=== PATIENT | female | born 1995 | race American Indian/Alaskan Native ===

== ENCOUNTER 2019-11-28 23:27 | Emergency (ER) | payer OTHER ==
[2019-11-29 00:44] VITALS: BP 114/84
--- NOTE | 2019-11-29 01:33 | XRay Report ---
CHEST 1 VIEW INDICATION / CLINICAL INFORMATION: Chest Pain. COMPARISON: None available. FINDINGS: SUPPORT DEVICES: None. HEART / MEDIASTINUM: No significant abnormality. LUNGS / PLEURA: No significant pulmonary or pleural abnormality. No pneumothorax. ADDITIONAL FINDINGS: No significant additional findings. IMPRESSION: No acute pulmonary or pleural abnormality Signer Name: Jeramy Montalvo MD FACR Signed: 11/29/2019 1:29 AM Workstation Name: [id number]
--- NOTE | 2019-11-29 01:56 | Emergency Department Report ---
HPI - General Chief Complaint: Chest Pain Time Seen by Provider: 11/29/19 01:16 - HPI HPI: This is a 24-year-old female here report that she is having right upper chest pain x2 days. She denies any trauma. She said this happened when she tries to take a deep breath. Radiating to right shoulder. Denies any fever chills or cough. Denies any nausea vomiting or diarrhea. Denies any nasal congestion or runny nose. No exposure to individuals with similar symptoms or individuals with coronavirus. Her right chest pain is 6 out of 10 and feels sharp. No medication taken prior to coming to the emergency room. This is intermittent. ED Past Medical Hx - Past Medical History Previous Medical History?: No - Surgical History Past Surgical History?: No - Family History Family history: hypertension - Social History Smoking Status: Never Smoker Substance Use Type: None - Medications Home Medications: Home Medications Medication Instructions Recorded Confirmed Last Taken Type Ibuprofen [Motrin] 800 mg PO Q8HR PRN #12 tablet 11/29/19 Unknown Rx ED Review of Systems ROS: Stated complaint: CHEST PAIN Other details as noted in HPI Constitutional: denies: chills, fever Eyes: denies: eye pain, eye discharge ENT: denies: ear pain, throat pain, congestion Respiratory: denies: cough, orthopnea, shortness of breath, SOB with exertion, SOB at rest, stridor, wheezing Cardiovascular: chest pain. denies: palpitations, dyspnea on exertion, edema, syncope Gastrointestinal: denies: abdominal pain, nausea, vomiting, diarrhea, hematemesis, hematochezia Genitourinary: denies: urgency, dysuria, hematuria, abnormal menses Musculoskeletal: denies: back pain, joint swelling, arthralgia, myalgia Skin: denies: rash Neurological: denies: headache, vertigo Physical Exam - Physical Exam Vital Signs: Vital Signs 11/29/19 00:42 Temperature 98.8 F Pulse Rate 66 Respiratory 16 Rate Blood Pressure 114/84 O2 Sat by Pulse 100 Oximetry General: 24-year-old female well-nourished well-developed in no acute distress Physical Exam: Head: Normocephalic atraumatic. Mouth: Oral mucosa moist, tongue is normal, uvula is midline, no POLITICAL ADVISOR or drooling, oral airways patent and uvula is Lungs: Clear to auscultated bilaterally, no rhonchi wheezes or rales. No use of accessory muscles. Neck: Supple, no tracheal deviation. No C-spine tenderness and full range of motion. Negative stridor and negative crepitus CV: S1, S2. Regular rate . Positive right chest wall tenderness with palpation Abdomen: Nontender to palpate in all quadrants, normal bowel sounds in all q uadrants. No distention. Eyes: Bilateral pupils equal and reactive to light, conjunctival injection or icterus. Bilateral EOM intact and normal accommodation. Lids are normal. No swelling noted. Skin: Clean dry and intact and no rash no lesions Extremity: No cce. + 2 pulses in all extremities, no neurovascular compromise. Mood: Normal mood and behavior Back: Nontender to palpate to vertebral spine from C-spine to L-spine including sacral area. No paraspinal tenderness and no CVA tenderness. No rash noted. ED Course Vital Signs 11/29/19 00:42 Temperature 98.8 F Pulse Rate 66 Respiratory 16 Rate Blood Pressure 114/84 O2 Sat by Pulse 100 Oximetry - Reevaluation(s) Reevaluation #1: 11/29/19 03:26 Patient is stable and no chest pain at present. She is in no acute distress. ED Medical Decision Making - EKG Data -: EKG Interpreted by Me (Attending physician) EKG shows normal: sinus rhythm Rate: normal - EKG Data Interpretation: normal EKG - Radiology Data Radiology results: report reviewed X-ray dictated by radiologist and report reviewed by myself. No acute findings Print Report Referring Physician:ED DOCPatient Name:FILEMON ADDISONPatient ID:[id number] of :[id number]:FemaleAccession:[id number] Date:[id number] Status:Finalized Findings [facility] [address] [place] [address] XRay Report Signed Patient: FILEMON ADDISON MR#: [id number] : 1995 Acct:[id number] Age/Sex: 24 / F ADM Date: 11/28/19 Loc: ED Attending Dr: Ordering Physician: ED DOC, Date of Service: 11/29/19 Procedure(s): XR chest 1V ap Accession Number(s): [id number] cc: ED DOC, Fluoro Time In Minutes: CHEST 1 VIEW INDICATION / CLINICAL INFORMATION: Chest Pain. COMPARISON: None available. FINDINGS: SUPPORT DEVICES: None. HEART / MEDIASTINUM: No significant abnormality. LUNGS / PLEURA: No significant pulmonary or pleural abnormality. No pneumothorax. ADDITIONAL FINDINGS: No significant additional findings. IMPRESSION: No acute pulmonary or pleural abnormality Signer Name: Jeramy Montalvo MD FACR Signed: 11/29/2019 1:29 AM Workstation Name: [id number] Transcribed By: MS Dictated By: Jeramy Montalvo MD Electronically Authenticated By: Jeramy Montalvo MD Signed Date/Time: 11/29/19128 DD/ 8 TD/TT: - Medical Decision Making This is a 24-year-old female here for atypical chest pain. Physical findings for tenderness to palpate to right chest wall without any other findings. EKG shows sinus rhythm with no acute findings, chest x-ray dictated by radiologist and normal findings. Patient is stable and in no acute distress. I discussed diagnosis and treatment plan with her and she voiced understanding. Low cardiac risk . Patient has no risk factors. She is at low cardiac risk. I discussed with her that if her chest pain return to return to the emergency room otherwise follow-up with her primary care physician for costochondritis. Patient discharged home on naproxen in stable condition. Vital signs stable she is afebrile - Differential Diagnosis ACS, PNA, pleurisy, costochondritis Critical care attestation.: If time is entered above; I have spent that time in minutes in the direct care of this critically ill patient, excluding procedure time. ED Disposition Clinical Impression: Acute costochondritis Disposition: DC-01 TO HOME OR SELFCARE Is pt being admited?: No Does the pt Need Aspirin: No Condition: Stable Instructions: Costochondritis (ED) Additional Instructions: Follow-up with your primary care physician in 1 to 2 days. If chest pain returns, return to the emergency room Take Motrin for chest wall inflammation and pain. Referrals: PRIMARY CAREMD [Primary Care Provider] - 11/29/19 Forms: Work/School Release Form(ED)
== END 2019-11-29 03:39 | disposition home or self-care (01) ==
LOC: ED 23:27
DX: M94.0 Chondrocostal junction syndrome [Tietze] (principal)
CPT/HCPCS: 71045; 93005; 93010

== ENCOUNTER 2021-06-11 10:10 | Emergency (ER) | payer OTHER ==
[2021-06-11 10:45] LABS: Bilirubin,Urine NEG (Negative); Blood,Urine NEG (Negative); Color,Urine Yellow (Yellow); Mucus,Urine FEW /HPF; Protein,Urine <15 mg/dL mg/dL (Negative)
[2021-06-11 11:07] LABS: Basophils % (Auto) 0.5 % (0.0-1.8); Eosinophils # (Auto) 0.4 K/mm3 (0.0-0.4); Eosinophils % (Auto) 5.6 % (0.0-4.3); Hematocrit 34.6 % (30.3-42.9); Hemoglobin 11.6 gm/dl (10.1-14.3); Lymphocytes # (Auto) 1.2 K/mm3 (1.2-5.4); Lymphocytes % (Auto) 18.2 % (13.4-35.0); Mean Corpuscular HGB Conc 34 % (30-34); Mean Corpuscular Volume 84 fl (79-97); Monocytes # (Auto) 0.6 K/mm3 (0.0-0.8); Monocytes % (Auto) 9.4 % (0.0-7.3); Platelet Count 235 K/mm3 (140-440); Red Cell Distribution Width 14.7 % (13.2-15.2)
[2021-06-11] MEDS ORDERED: ACETAMINOPHEN 325 MG TAB PO ONE (11:07)
--- NOTE | 2021-06-11 11:08 | Emergency Department Report ---
ED Abdominal Pain HPI - General Chief Complaint: Abdominal Pain Stated Complaint: LOWER ABD PAIN PUI?: No Time Seen by Provider: 06/11/21 10:31 Source: patient Mode of arrival: Ambulatory Limitations: No Limitations - History of Present Illness Initial Comments: Patient is a 25-year-old female presents emergency room with complaints of lower abdominal pain that began last night. She states the pain radiates to her left leg and she has pain with ambulating or bending over. She denies any nausea, vomiting, diarrhea, vaginal bleeding, vaginal discharge. She states that she does feel some pressure in her lower abdomen upon urination but denies any dysuria. She states that she had a normal bowel movement yesterday. No past medical history. No allergies to medications. Patient is currently 19 weeks , this is her first , her [employer] WORK[employer] is at [facility]. - Related Data Previous Rx's Medication Instructions Recorded Last Taken Type Ibuprofen [Motrin] 800 mg PO Q8HR PRN #12 tablet 11/29/19 Unknown Rx HYDROcodone/APAP 5-325 [[place] 1 each PO Q6HR PRN #15 tablet 06/11/21 Unknown Rx 5/325] Allergies Allergy/AdvReac Type Severity Reaction Status Date / Time No Known Allergies Allergy Unverified 11/29/19 00:40 ED Review of Systems ROS: Stated complaint: LOWER ABD PAIN Other details as noted in HPI Comment: All other systems reviewed and negative ED Past Medical Hx - Past Medical History Previous Medical History?: No - Surgical History Past Surgical History?: No - Social History Smoking Status: Never Smoker Substance Use Type: None - Medications Home Medications: Home Medications Medication Instructions Recorded Confirmed Last Taken Type Ibuprofen [Motrin] 800 mg PO Q8HR PRN #12 tablet 11/29/19 Unknown Rx HYDROcodone/APAP 5-325 [[place] 1 each PO Q6HR PRN #15 tablet 06/11/21 Unknown Rx 5/325] ED Physical Exam - General Limitations: No Limitations General appearance: alert, in no apparent distress - Head Head exam: Present: atraumatic, normocephalic - Eye Eye exam: Present: normal appearance - ENT ENT exam: Present: mucous membranes moist - Respiratory Respiratory exam: Present: normal lung sounds bilaterally. Absent: respiratory distress, wheezes, rales, rhonchi, stridor, chest wall tenderness, accessory muscle use, decreased breath sounds, prolonged expiratory - Cardiovascular Cardiovascular Exam: Present: regular rate, normal rhythm, normal heart sounds. Absent: systolic murmur, diastolic murmur, rubs, gallop - GI/Abdominal GI/Abdominal exam: Present: soft, tenderness (LLQ), normal bowel sounds. Absent: distended, guarding, rebound, rigid - Extremities Exam Extremities exam: Present: other (no bony ttp of the LLE, no calf ttp, no leg edema, mild pain in the left inguinal region with full flexion of the hip, n eurovascularly intact) - Neurological Exam Neurological exam: Present: alert, oriented X3 - Psychiatric Psychiatric exam: Present: normal affect, normal mood - Skin Skin exam: Present: warm, dry, intact ED Course Vital Signs 06/11/21 06/11/21 06/11/21 10:21 10:45 10:46 Temperature 97.9 F 98.0 F Pulse Rate 95 H 61 Respiratory 20 14 Rate Blood Pressure 112/65 Blood Pressure 121/78 [Right] O2 Sat by Pulse 99 99 99 Oximetry 06/11/21 06/11/21 06/11/21 10:47 18:50 18:55 Temperature 98.1 F 97.0 F L Pulse Rate 81 83 77 Respiratory 14 16 22 Rate Blood Pressure 121/78 121/75 121/71 Blood Pressure [Right] O2 Sat by Pulse 99 99 99 Oximetry 06/11/21 06/11/21 06/11/21 19:00 19:05 19:20 Temperature 97.8 F Pulse Rate 74 70 73 Respiratory 22 20 21 Rate Blood Pressure 128/80 128/84 128/77 Blood Pressure [Right] O2 Sat by Pulse 99 95 95 Oximetry 06/11/21 06/11/21 19:35 19:50 Temperature 98.3 F Pulse Rate 70 100 H Respiratory 19 14 Rate Blood Pressure 122/80 Blood Pressure 116/67 [Right] O2 Sat by Pulse 96 98 Oximetry - Consultations Consultation #1: 06/11/21 13:00 asked stenographer secretary to page [facility] pts molasses coloring operator 06/11/21 13:[address] Rocha, [facility] [employer], she states that she does not take call for this hospital, she reports that Dr. Andrade is on-call for [facility] if our on-call [employer] WORKER [employer]AL had any questions but she advised to call [facility]'s on-call physician for OB 06/11/21 14:[address] Owens, cognos bi administrator digital operations analyst, will evaluate patient in the emergency department ED Medical Decision Making - Lab Data Result diagrams: 06/11/21 10:45 06/11/21 10:45 - Radiology Data Radiology results: report reviewed Ordering Physician: VANESA MATHEWS Date of Service: 06/11/21 Procedure(s): US OB >= 14 weeks Fetus Accession Number(s): [id number] cc: VANESA MATHEWS OB ULTRASOUND >= 14 WEEKS FETUS INDICATION: , lower abd pain, please eval ovaries COMPARISON: None available FINDINGS: A single gestation intrauterine is present with cephalic presen tation. The placenta is posterior and free of the cervical os. The technologist felt the placenta was slightly low lying but there is no evidence for partial or complete previa. Consider follow-up. heart tones measure 157 bpm. The cervix measures 3.0 cm. There appears to be an intramural fibroid in the anterior wall measuring 5.4 x 3.6 x 4.1 cm. Qualitative JORGE appears within normal limits. JORGE was not measured. The intracranial structures, spine, four-chamber heart, diaphragm, umbilical cord, cord insertion, stomach, kidneys, and bladder show no sonographic abnormality. Biparietal diameter is 4.6 cm which equals 19 weeks 5 days. Head circumference is 16.6 cm which equals 19 weeks 2 days. Abdominal circumference is 14.4 cm which equals 19 weeks 5 days. Femur length is 3.0 cm which equals 19 weeks 2 days. Overall estimated sonographic age is 19 weeks 4 days. EDC: 11/01/2021. HC/AC ratio: 1.15 Cephalic index: 85.1 Estimated weight: 294 g Additional findings: The right ovary could not be visualized. The left ovary appears enlarged and hypoechoic measuring 5.5 x 5.3 x 4.7 cm. No convincing arterial blood flow could be detected in the left ovary on spectral Doppler waveforms. The technologist noted the patient had extreme pain overlying the left ovary during interrogation. IMPRESSION: Viable single intrauterine as described. The left ovary appears enlarged and hypoechoic with absent arterial flow on spectral Doppler imaging. This is highly concerning for left ovarian torsion. CRITICAL RESULT: Time of Discovery (MAT MACHINE OPERATOR/CDT): 1143 hours Time of Communication (MAT MACHINE OPERATOR/CDT): 1147 hours Licensed Practitioner Receiving Report: Dr. Branham Read-Back Performed: Yes. Signer Name: Beny Duarte Jr, MD Signed: 06/11/2021 12:47 PM Workstation Name: [id number] Transcribed By: TTR Dictated By: BENY DUARTE JR, MD Electronically Authenticated By: BENY DUARTE JR, MD Signed Date/Time: 06/11/21 124 DD/ 1236 TD/TT: - Medical Decision Making Patient is a 25-year-old female presents emergency room with complaints of lower abdominal pain that began last night. She states the pain radiates to her left leg and she has pain with ambulating or bending over. She denies any nausea, vomiting, diarrhea, vaginal bleeding, vaginal discharge. She states that she does feel some pressure in her lower abdomen upon urination but denies any dysuria. She states that she had a normal bowel movement yesterday. No past medical history. No allergies to medications. Patient is currently 19 weeks , this is her first , her [employer]ERY WORKER GENERAL is at [facility]. Vitals are normal. On exam patient has left lower quadrant tenderness palpation. Labs are stable. UA without evidence of UTI. OB ultrasound: Viable single intrauterine as described. The left ovary appears enlarged and hypoechoic with absent arterial flow on spectral Doppler imaging. This is highly concerning for left ovarian torsion.spoke to Dr. Owens, cognos bi administrator digital operations analyst, will evaluate patient in the emergency department. Dr. Saint Gutierrez, DIST[employer] WORK[employer]AL resumed care of patient and took patient to the OR, please see Dr. Zarco's note for continued care. Critical care attestation.: If time is entered above; I have spent that time in minutes in the direct care of this critically ill patient, excluding procedure time. ED Disposition Clinical Impression: Ovarian torsion Abdominal pain Qualifiers: Abdominal location: left lower quadrant Qualified Code(s): R10.32 - Left lower quadrant pain Qualifiers: Weeks of gestation: 19 weeks Qualified Code(s): Z3A.19 - 19 weeks gestation of Disposition: 01 HOME / SELF CARE / HOMELESS Is pt being admited?: No Does the pt Need Aspirin: No Condition: Stable Instructions: Laparoscopic Cholecystectomy, Care After, Abdominal Pain (ED) Additional Instructions: Pelvic rest in 1 week. Schedule follow-up with Dr. Zarco in 1 week [place] [facility] [employer] [address] [place] [address]. [place] [address] [phone] Prescriptions: HYDROcodone/APAP 5-325 [[place] 5/325] 1 each PO Q6HR PRN #15 tablet PRN Reason: Pain Time of Disposition: 16:03 Print Language: DANISH
[2021-06-11 11:27] LABS: Alanine Aminotransferase 76 units/L (7-56); Albumin 3.7 g/dL (3.9-5); Blood Urea Nitrogen 5 mg/dL (7-17); Calcium 9.3 mg/dL (8.4-10.2)
[2021-06-11 11:29] LABS: BUN/Creatinine Ratio 10
--- NOTE | 2021-06-11 12:52 | Ultrasound Report ---
OB ULTRASOUND >= 14 WEEKS FETUS INDICATION: , lower abd pain, please eval ovaries COMPARISON: None available FINDINGS: A single gestation intrauterine is present with cephalic presentation. The placenta is post erior and free of the cervical os. The technologist felt the placenta was slightly low lying but ther e is no evidence for partial or complete previa. Consider follow-up. heart tones measure 157 bp m. The cervix measures 3.0 cm. There appears to be an intramural fibroid in the anterior wall measuri ng 5.4 x 3.6 x 4.1 cm. Qualitative JORGE appears within normal limits. JORGE was not measured. The intracranial structures, spine, four-chamber heart, diaphragm, umbilical cord, cord inserti on, stomach, kidneys, and bladder show no sonographic abnormality. Biparietal diameter is 4.6 cm which equals 19 weeks 5 days. Head circumference is 16.6 cm which equals 19 weeks 2 days. Abdominal circumference is 14.4 cm which equals 19 weeks 5 days. Femur length is 3.0 cm which equals 19 weeks 2 days. Overall estimated sonographic age is 19 weeks 4 days. EDC: 11/01/2021. HC/AC ratio: 1.15 Cephalic index: 85.1 Estimated weight: 294 g Additional findings: The right ovary could not be visualized. The left ovary appears enlarged and hyp oechoic measuring 5.5 x 5.3 x 4.7 cm. No convincing arterial blood flow could be detected in the left ovary on spectral Doppler waveforms. The technologist noted the patient had extreme pain overlying t he left ovary during interrogation. IMPRESSION: Viable single intrauterine as described. The left ovary appears enlarged and hypoechoic with absent arterial flow on spectral Doppler imaging. This is highly concerning for left ovarian torsion. CRITICAL RESULT: Time of Discovery (ADVERTISING PRODUCTION MANAGER/CDT): 1143 hours Time of Communication (ADVERTISING PRODUCTION MANAGER/CDT): 1147 hours Licensed Practitioner Receiving Report: Dr. Branham Read-Back Performed: Yes. Signer Name: Beny Duarte Jr, MD Signed: 06/11/2021 12:47 PM Workstation Name: [id number]
--- NOTE | 2021-06-11 14:56 | Short Stay Summary ---
Short Stay Documentation Date of service: 06/11/21 Narrative H&P: 25y/o @ 19+4 weeks presents with LLQ that began last night. The patient reports receiving care at [facility]. She denies any leakage of fluid or vaginal bleeding. Ultrasound demonstrates an enlarged left ovary 5.5cm with no evidence of arterial flow. The patient reports the pain is intermittent and affected by positional change. - History Principal diagnosis: Ovarian torsion Past Medical History: No medical history Past Surgical History: No surgical history Social history: single - Allergies and Medications Current Medications: Allergies No Known Allergies Allergy (Unverified 11/29/19 00:40) Home Medications Medication Instructions Recorded Confirmed Last Taken Type Ibuprofen [Motrin] 800 mg PO Q8HR PRN #12 tablet 11/29/19 Unknown Rx - Physical exam General appearance: mild distress Integumentary: no rash HEENT: Atraumatic Lungs: Clear to auscultation Breasts: deferred Heart: Regular rate Gastrointestinal: tenderness - Brief post op/procedure progress note Date of procedure: 06/11/21 Pre-op diagnosis: Ovarian torsion Post-op diagnosis: same Procedure: Laparoscopy Anesthesia: GETA Surgeon: CAESAR AGEE Estimated blood loss: minimal Pathology: none Condition: stable - Hospital course Hospital course: The patient was admitted from the ED with the complaints of left lower quadrant pain. An OB ultrasound was performed that demonstrated evidence of an intrauterine consistent with dates of 19 weeks and 4 days. Ultrasound also showed findings of an enlarged left ovary of 5 cm and evidence of no arterial flow. The patient was taken for a diagnostic laparoscopy and other indicated procedures. Please see operative note for details of surgery. Her postoperative course is uneventful. - Disposition Condition at discharge: Fair Disposition: 01 HOME / SELF CARE / HOMELESS - Discharge Diagnoses (1) Ovarian torsion Status: Acute Short Stay Discharge Plan Activity: other (Pelvic rest for 1 week) Diet: regular Additional Instructions: Schedule follow-up with Dr. Agee in 1 week [place] [facility] [employer] [address] [place] [address] [place] [address] [phone] Prescriptions: HYDROcodone/APAP 5-325 [[place] 5/325] 1 each PO Q6HR PRN #15 tablet PRN Reason: Pain
--- NOTE | 2021-06-11 16:09 | Anesthesia Consultation ---
<LUPILLO NEAL - Last Filed: 06/11/21 16:06> Anesthesia Consult and Med Hx - Airway Anesthetic Teeth Evaluation: Good ROM Head & Neck: Adequate Mental/Hyoid Distance: Adequate Mallampati Class: Class III Intubation Access Assessment: Probably Good - Pulmonary Exam CTA: Yes - Cardiac Exam Cardiac Exam: RRR - Pre-Operative Health Status ASA Pre-Surgery Classification: ASA2 Proposed Anesthetic Plan: General - Pulmonary Hx Smoking: No Hx Asthma: No Hx Sleep Apnea: No - Cardiovascular System Hx Hypertension: No Hx Heart Attack/AMI: No - Central Nervous System Hx Neuromuscular Disorder: No - Gastrointestinal Hx Gastroesophageal Reflux Disease: No - Endocrine Hx Renal Disease: No Hx Liver Disease: No Hx Thyroid Disease: No - Other Systems Hx Alcohol Use: No Hx Substance Use: No Hx Cancer: No - Additional Comments Anesthesia Medical History Comments: No history of anesthetic complications. Patient does not wish to recieve PRBCs, platelets, and FFP. She is OK to receive cryo, cell saver, or other clotting factors. <KEITH GLASS - Last Filed: 06/11/21 17:49> Anesthesia Consult and Med Hx - Pre-Operative Health Status ASA Pre-Surgery Classification: ASA3, Emergency
--- NOTE | 2021-06-11 16:10 | Anesthesia Day of Surgery ---
Anesthesia Day of Surgery - Day of Surgery Patient Examined: Yes Patient H&P Reviewed: Yes Patient is NPO: Yes
[2021-06-11] MEDS ORDERED: SODIUM CHLORIDE 0.9% IRR 1,500 ML BOTTLE IR ONE (16:30)
[2021-06-11] MEDS ORDERED: propofoL 200 MG/20 ML VIAL IV ONE (17:05)
[2021-06-11] MEDS ORDERED: LIDOCAINE MPF (2%) 20 MG/1 ML VIAL 5 ML ONE (17:05)
[2021-06-11] MEDS ORDERED: ROCURONIUM 50 MG/5 ML INJ IV ONE (17:05)
[2021-06-11] MEDS ORDERED: HYDROmorphone 1 MG/1 ML INJ ONE (17:05)
[2021-06-11] MEDS ORDERED: BUPIVACAINE/PF (0.5%) 5 MG/1 ML 30 ML VIAL INFILTRATI ONE (17:06)
[2021-06-11] MEDS ORDERED: SUCCINYLCHOLINE CHLORIDE 200 MG/10 ML INJ MDV ONE (17:38)
[2021-06-11] MEDS ORDERED: ONDANSETRON 4 MG/2 ML INJ ONE (17:54)
[2021-06-11] MEDS ORDERED: dexAMETHasone 20 MG/5 ML VIAL ONE (17:54)
[2021-06-11] MEDS ORDERED: SODIUM CHLORIDE 0.9% 1000 ML 1,000 ML ONE (17:58)
[2021-06-11] MEDS ORDERED: PHENYLEPHRINE/NS 1,000 MCG/10 ML SYRINGE (OR USE) IV ONE (18:05)
[2021-06-11] MEDS ORDERED: GLYCOPYRROLATE 0.4 MG/2 ML INJ ONE (18:33)
[2021-06-11] MEDS ORDERED: NEOSTIGMINE 10MG/10 ML INJ MDV ONE (18:33)
[2021-06-11] MEDS ORDERED: KETOROLAC 30 MG/1 ML INJ ONE (18:40)
[2021-06-11] MEDS ORDERED: ONDANSETRON 4 MG/2 ML INJ IV PRN (18:46)
[2021-06-11] MEDS ORDERED: fentaNYL 100 MCG/2 ML INJ IV PRN (18:46)
[2021-06-11] MEDS ORDERED: HYDROcodone/ACETAMINOPHEN 5-325 MG TAB PO PRN (18:47)
--- NOTE | 2021-06-11 18:48 | Operative Report ---
Operative Report Operative Report: Date of surgery: June 11, 2021 Preoperative diagnosis: Left lower quadrant pain; left ovarian torsion; pre gnancy at 19+4 weeks Postoperative diagnosis: Same as above Procedure: Diagnostic laparoscopy Surgeon: Elizabeth Owens M.D. Anesthesia: General endotracheal anesthesia Estimated blood loss: Minimal Findings: Gravid uterus consistent with gestational age; left 5 cm pedunculated leiomyoma; perfusion of left adnexa Indication: 25-year-old G1, P0 at 19+4 weeks who presents to the emergency department with a complaint of left lower quadrant pain. OB ultrasound was performed that confirmed intrauterine with findings of a enlarged left ovary of 5 cm and evidence of no arterial flow. Procedure: The patient was taken to the operating room and given general endotracheal anesthesia without complication. The patient is prepped and draped in a normal sterile fashion. Attention was then turned to the patient's abdomen where a 5 mm supra umbilical skin incision was then made. A Veress needle was placed and peritoneal entry was verified water-filled syringe. Insufflation of the peritoneal cavity was performed with CO2 gas. A 5 mm trocar was placed and the laparoscope was then inserted. The patient was then placed in Trendelenburg. Two 5 mm left lateral trochars were placed under direct visualization. An additional 5 mm left lateral trocar was also placed. General survey of the patient's abdomen revealed gravid uterus consistent with gestation. The patient was placed in a right lateral tilt and Trendelenburg. Multiple attempts were made to elevate the ovary out of the pelvis however could not be mobilized secondary to the gravid uterus. The patient was noted to have a 5 cm pedunculated left leiomyoma. The left ovary was visualized and appeared to have adequate oxygen perfusion. The adnexa did not appear dusky or deoxygenated. The left fallopian tube was normal in appearance. The right ovary and tube could not be visualized. The decision was made to abort the procedure secondary to the adnexa having adequate perfusion. Of note prior to entering the operating room the patient was able to ambulate to the [facility] without difficulty. She had previously reported that her pain had been intermittent. The trocars were then removed. The pneumoperitoneum was then released. The 5 mm trocar laparoscope was then removed. The skin incisions were then closed with 4-0 Monocryl. The incisions were injected with quarter percent Marcaine. Dressings were applied to the incision. The vaginal instruments were then removed atraumatically. then successfully extubated and taken to the recovery room. All sponge laps and needle counts were correct x2. Doptones were verified in the recovery room.
--- NOTE | 2021-06-11 19:52 | Post Anesthesia Evaluation ---
- Post Anesthesia Evaluation Patient Participated: Yes Airway Patent: Yes Stable Respiratory Function: Yes Nausea/Vomiting: No Temp > 96.8F: Yes Pain Manageable: Yes Adequeate Hydration: Yes Anesthesia Complications: No Other Comments: PACU FHTs 130s
[2021-06-11 21:01] VITALS: BP 122/80
== END 2021-06-11 21:20 | disposition home or self-care (01) ==
LOC: ED 10:10
DX: O26.892 Other specified pregnancy related conditions, second trimester (principal); N83.53 Torsion of ovary, ovarian pedicle and fallopian tube; R10.32 Left lower quadrant pain; Z3A.19 19 weeks gestation of pregnancy
CPT/HCPCS: 36415; 49320; 76805; 80053; 81001; 83690; 84702; 85025; 99284; J0330; J1100; J1170; J1885; J2370; J2405; J2704; J2710; J7030